=== PATIENT | female | born 1970 | race Caucasian/White ===

== ENCOUNTER 2022-03-17 09:45 | Emergency (ER) | payer MEDICAID, OTHER ==
[2022-03-17] VITALS (11 sets, daily range): BP systolic 111–153; BP diastolic 65–100
[~2022-03-17] VITALS: Ht 167.6 cm; Wt 61.4 kg
[~2022-03-17 09:45] MED LIST: GUAI177L3 PO; LISI-893 PO
[2022-03-17] MEDS ORDERED: ACETAMINOPHEN 325 MG TABLET PO ONE (10:30)
[2022-03-17] MEDS ORDERED: IBUPROFEN 600 MG TABLET PO ONE (10:30)
[2022-03-17 10:48] LABS: COVID AG,FIA SOURCE NASOPHARYNGEAL
[2022-03-17 10:58] LABS: ANION GAP 7 mmol/L (8-16); CARBON DIOXIDE 26 mmol/L (22-29); CHLORIDE 102 mmol/L (98-107); CREATININE 0.66 mg/dL (0.60-1.30); GLOMERULAR FILTR. RATE CALC > 60 mL/min (>60); GLUCOSE,RANDOM 103 mg/dL (70-110); POTASSIUM 4.2 mmol/L (3.5-5.1); SODIUM SERUM 135 mmol/L (136-145); UREA NITROGEN, BLOOD 6 mg/dL (7-18)
[2022-03-17 11:00] LABS: BASOPHILS % (AUTO) 1.1 % (0.0-2.0); EOSINOPHILS % (AUTO) 0.9 % (1.0-6.0); HEMATOCRIT 22.5 % (36-46); LYMPHOCYTES # (AUTO) 1.8 K/uL (1.0-4.8); LYMPHOCYTES % (AUTO) 28.6 % (22.0-44.0); MEAN CORPUSCULAR HEMOGLOBIN 14.9 pg (26.0-34.0); MEAN CORPUSCULAR HGB CONC 28.2 G/dL (31.0-37.0); MEAN CORPUSCULAR VOLUME 53 fL (80-100); MONOCYTES # (AUTO) 0.5 K/uL (0.1-1.0); MONOCYTES % (AUTO) 8.3 % (2.0-9.0); NEUTROPHILS # (AUTO) 3.8 K/uL (1.8-7.7); NEUTROPHILS % (AUTO) 61.1 % (40.0-70.0); PLATELET COUNT (AUTO) 253 K/uL (150-450); RED BLOOD CELL COUNT(AUTO) 4.27 MIL/uL (4.00-5.20); RED CELL DISTRIBUTION WIDTH 20.6 % (11.5-14.5)
[2022-03-17 11:09] LABS: HEMOGLOBIN 6.3 g/dL (12.0-16.0)
[2022-03-17 11:16] LABS: ALANINE AMINOTRANSFERASE 30 U/L (12-78); ALBUMIN 3.8 g/dL (3.4-5.0); ALKALINE PHOSPHATASE 115 U/L (46-116); ASPARTATE AMINOTRANSFERASE 36 U/L (15-37); BILIRUBIN,TOTAL 0.3 mg/dL (0.1-1.0); CREATINE KINASE, TOTAL ONLY 29 U/L (26-192); HCG,QUANTITATIVE 2 mIU/mL (0-6); TOTAL PROTEIN, SERUM 7.8 g/dL (6.4-8.2)
[2022-03-17 11:17] LABS: B-TYPE NATRIURETIC PEPTIDE 12 pg/mL (0-100)
[2022-03-17 11:28] LABS: RAPID GROUP A STREP NEGATIVE (NEGATIVE)
[2022-03-17 11:35] LABS: INFLUENZA TYPE A NEGATIVE FOR TYPE A (NEGATIVE); INFLUENZA TYPE B NEGATIVE FOR TYPE B (NEGATIVE)
== END 2022-03-17 16:52 | disposition home or self-care (01) ==
LOC: EMS 09:48
DX: D64.9 Anemia, unspecified (principal); R55 Syncope and collapse; Z20.822 Contact with and (suspected) exposure to COVID-19; F10.20 Alcohol dependence, uncomplicated; I10 Essential (primary) hypertension
CPT/HCPCS: 99285; 36430; 71045; 87426; 80053; 82550; 83880; 84484; 84702; 85025; 87430; 87804; 86850; 86900; 86901; 86923; 36415; 93005; P9016